=== PATIENT | female | born 1975 | race Hispanic/Latino ===

== ENCOUNTER → 2021-06-13 | Day surgery (SDC) | payer OTHER ==
[2021-06-11 13:06] LABS: BASOPHILS # (AUTO) 0.1 (0.0-0.1); BASOPHILS % 0.7 % (0.0-1.0); EOSINOPHILS % 0.5 % (0.0-6.0); HEMATOCRIT 42.1 % (34.2-44.1); HEMOGLOBIN 13.4 g/dL (12.0-16.0); LYMPHOCYTES # (AUTO) 1.5 (1.0-3.2); LYMPHOCYTES % 18.3 % (18.0-39.1); MEAN CORPUSCULAR HGB CONC 31.8 g/dL (31-35); MEAN CORPUSCULAR VOLUME 87.9 fL (81-99); MONOCYTES # (AUTO) 0.5 (0.2-0.8); MONOCYTES % 6.4 % (4.4-11.3); NEUTROPHILS % 73.9 % (38.7-80.0); PLATELET COUNT 344 x10e3/uL (140-360); RED BLOOD COUNT 4.79 x10e6/uL (3.6-5.1); RED CELL DISTRIBUTION WIDTH 13.5 % (11.7-14.4)
[2021-06-11 13:24] LABS: ANION GAP 13.7 mmol/L (8-16); CALCIUM 8.7 mg/dL (8.4-10.2); CREATININE, SERUM 0.67 mg/dL (0.57-1.11); POTASSIUM 3.7 mmol/L (3.5-5.1)
[~2021-06-13] MED LIST: AMLODIPINE BESYL5 MG PO; BUPIVACAINE HCL 0.5% INJ 30 ML VIAL INJ ONE; DEXAMETHASONE SOD PHOS INJ 4 MG/ML SDV ONE; EPHEDRINE SULFATE INJ 50 MG/ML VIAL ONE; FENTANYL CITRATE/PF 100MCG/2 ML INJ ONE; KETOROLAC TROMETHAMINE 30 MG/ML VIAL ONE; LIDOCAINE HCL 2% LOCAL INJ 5 ML SDV VIAL INJ ONE; MIDAZOLAM HCL 2 MG/2 ML VIAL ONE; MUPIROCIN 2% OINT 22 GM TUBE ONE; ONDANSETRON HCL INJ 2MG/ML 2ML 2 MG/ML VIAL ONE; POVIDONE IODINE 0.05% 0.05 % ML PO ONE; PROPOFOL IV EMULSION 10 MG/ML 20 ML VIAL ONE; SEVOFLURANE INHAL SOLN 250 ML PEN BTL ONE; SINGULAIR10 MG PO; SODIUM CHLORIDE 0.9% 50ML 100 ML ONE
[2021-06-13 10:25] VITALS: BP 140/88
== END | disposition home or self-care (01) ==
LOC: OR 05:45
PROVIDERS: ATTEND Podiatrist Foot Surgery
DX: S93.492A Sprain of other ligament of left ankle, initial encounter (principal); Q66.89 Other specified congenital deformities of feet; M19.272 Secondary osteoarthritis, left ankle and foot; I10 Essential (primary) hypertension; X58.XXXA Exposure to other specified factors, initial encounter; Z79.899 Other long term (current) drug therapy; Z01.810 Encounter for preprocedural cardiovascular examination; Z01.812 Encounter for preprocedural laboratory examination; Z01.818 Encounter for other preprocedural examination; Z20.822 Contact with and (suspected) exposure to COVID-19
CPT/HCPCS: 27695; 28116; 36415; 71046; 76000; 80048; 84702; 85025; 93005; J0690; J1100; J1885; J2001; J2250; J2405; J2704; J3010; Q4150; U0002